=== PATIENT | female | born 1995 | race Caucasian/White ===

== ENCOUNTER 2017-05-12 19:56 | Emergency (ER) | payer OTHER ==
--- NOTE | 2017-05-12 20:34 | RAD ---
RIGHT WRIST THREE VIEW 05/12/17 HISTORY: Pain. COMPARISON: None. FINDINGS: No acute fracture or malalignment. Soft tissues are unremarkable. IMPRESSION: No acute fracture or malalignment. POS: [id number]
== END 2017-05-12 20:55 | disposition home or self-care (01) ==
LOC: ERS 19:56
DX: S63.501A Unspecified sprain of right wrist, initial encounter (principal); X50.9XXA Other and unspecified overexertion or strenuous movements or postures, initial encounter